=== PATIENT | male | born 1975 | race Caucasian/White ===

== ENCOUNTER 2016-08-13 07:24 | Outpatient (CLI) | payer OTHER | END 2016-08-13 07:25 | LOC: OUT 07:24 | PROVIDERS: ATTEND Colon & Rectal Surgery | DX: K42.9 Umbilical hernia without obstruction or gangrene (principal) | CPT/HCPCS: 99214 ==

== ENCOUNTER 2016-08-27 07:11 | Day surgery (SDC) | payer OTHER ==
--- NOTE | 2016-08-28 13:39 | Operative Note ---
SURGEON: Miguel Lai MD ANESTHESIA: General. ESTIMATED BLOOD LOSS: Minimal. COMPLICATIONS: None. APPARENT FINDINGS: A 2 cm umbilical hernia containing fat. PREOPERATIVE DIAGNOSIS: Umbilical hernia. POSTOPERATIVE DIAGNOSIS: Umbilical hernia. PROCEDURE PERFORMED: Repair of umbilical hernia with mesh. INDICATIONS FOR PROCEDURE: This is a 41-year-old man with an increasingly symptomatic umbilical hernia. DESCRIPTION OF PROCEDURE: The patient is brought to the operating room with general anesthesia achieved. The abdomen was prepped and draped. A curvilinear incision was made along the inferior border of the umbilicus and carried to the fascia. The hernia sac was opened. He had some herniated fat which was reduced. There was about a 2 to 2.5 cm defect. A medium Ventralex was used to repair the defect. It was placed beneath the fascia and secured with interrupted 0-Prolene sutures. The wound was irrigated and suctioned. There was no bleeding. The base of the umbilicus was tacked to the fascia with a 2-0 Vicryl suture. The skin was closed with running 4-0 Vicryl subcuticular sutures. Steri-Strips and a dressing were placed over the incision. The patient was awakened and extubated in the operating room and taken to the recovery room in good condition. cc: Dr. Shanta BURDEN
== END 2016-08-27 07:12 ==
LOC: OPSURG 07:11
PROVIDERS: ATTEND Colon & Rectal Surgery
DX: K42.0 Umbilical hernia with obstruction, without gangrene (principal)
CPT/HCPCS: 49587; J0131; J0330; J0690; J1100; J1885; J2001; J2250; J2405; J2704; J3010; J3490; J7030; J7120; C1781; S0028; S1016

== ENCOUNTER 2016-09-10 | Outpatient (CLI) | payer OTHER | END 2016-09-10 09:30 | CPT/HCPCS: 99213 ==

== ENCOUNTER 2017-04-09 06:01 | Emergency (ER) | payer OTHER ==
[2017-04-09] MEDS ORDERED: 0.9 % SODIUM CHLORIDE 1,000 ML IV ONE ×2 (06:10→06:11)
[2017-04-09 06:33] LABS: MEAN CORPUSCULAR HEMOGLOBIN 31.3 pg (28.0-34.0); MEAN CORPUSCULAR VOLUME 90.5 fl (80.0-100.0)
[2017-04-09 06:35] LABS: eGFR (African) > 60; eGFR (Non-African) > 60
--- NOTE | 2017-04-09 06:40 | ED Physician Documentation ---
Upper Respiratory Symptoms - HISTORIAN Historian: patient - HPI Stated Complaint: FEVER Chief Complaint: Cough/ Upper Respiratory Additional Information: cough congestion fever chills ache all over-eat/sleeps bowels/kidneys = ok Onset: days ago (3) Duration: intermittent episodes Context: other (hadd flu vaccine). denies: recent foreign travel, insect bite(s ) Worsened by Deep Breath: Yes - ROS CONST/EYES: weakness. denies: eye redness, eye itching CVS/RESP: none, chest pain, shortness of breath, palpitations LYMPH: leg swelling, rash, swollen glands GI/: denies: problems urinating NEURO/PSYCH: denies: fainting, dizziness, confusion, anxiety MS/SKIN: joint pain, muscle aches. denies: rash - PAST HX Lung Disease: asthma Surgeries/Procedures: appendectomy Immunizations: influenza, UTD Allergies/Adverse Reactions: Allergies Allergy/AdvReac Type Severity Reaction Status Date / Time No Known Drug Allergies Allergy Verified 04/09/17 06:28 - SOCIAL HX Smoking History: non-smoker Alcohol Use: none Drug Use: none - FAMILY HX Family History: no significant history - VITAL SIGNS Vital Signs: Vital Signs Temp Pulse Resp BP Pulse Ox 101.6 F H 115 H 18 125/81 98 04/09/17 06:01 04/09/17 06:01 04/09/17 06:01 04/09/17 06:01 04/09/17 06:01 - REVIEWED ASSESSMENTS Nursing Assessment Reviewed: Yes Vitals Reviewed: Yes ED Results Lab/Radiology - Lab Results Lab Results: Lab Results 04/09/17 04/09/17 06:10 06:10 WBC 13.40 K/ul H K/ul (4.00-12.00) RBC 4.71 M/ul M/ul (3.90-5.20) Hgb 14.7 g/dL g/dL (12.0-18.0) Hct 42.6 % % (37.0-53.0) MCV 90.5 fl fl (80.0-100.0) MCH 31.3 pg pg (28.0-34.0) MCHC 34.5 g/dL g/dL (30.0-36.0) RDW 12.9 % % (11.3-14.3) Plt Count 276 K/mm3 K/mm3 (130-400) Sodium 142 mmol/L mmol/L (136-145) Potassium 3.7 mmol/L mmol/L (3.5-5.1) Chloride 103 mmol/L mmol/L (98-107) Carbon Dioxide 25 mmol/L mmol/L (22-30) BUN 20 mg/dL mg/dL (9-20) Creatinine 1.10 mg/dL mg/dL (0.66-1.25) Estimated Creat Clear 131 Est GFR ( Amer) > 60 (60 - ) Est GFR (Non-Af Amer) > 60 (60 - ) Glucose 112 mg/dL H mg/dL (74-106) Calcium 9.3 mg/dL mg/dL (8.4-10.2) Total Bilirubin 0.4 mg/dL mg/dL (0.2-1.3) AST 22 U/L U/L (15-46) ALT 39 U/L U/L (13-69) Alkaline Phosphatase 63 U/L U/L (38-126) Total Protein 7.5 g/dL g/dL (6.3-8.2) Albumin 4.1 g/dL g/dL (3.5-5.0) type a flu titer pos - Orders Orders: ED Orders Category Date Time Status Place IV Lock 1T Care 04/09/17 06:08 Active CBC/PLATELET/DIFF Routine Lab 04/09/17 06:10 Received CMP [CMP] Routine Lab 04/09/17 06:10 Received INFLUENZA A&B Stat Lab 04/09/17 06:01 Ordered UA [URINALYSIS] Routine Lab 04/09/17 Ordered 0.9 % Sodium Chloride [Normal Saline] 1,000 ml Med 04/09/17 06:11 Discontinued IV .STK-MED 0.9 % Sodium Chloride [Normal Saline] 1,000 ml Med 04/09/17 06:10 Active IV Q1H EKG WITH COMPARISON Stat Ther 04/09/17 Ordered Upper Respiratory Symptoms - EXAM General Appearance: moderate distress EENT: eyes nml inspection, TM erythema. No: pharynx nml Neck: normal inspection. No: carotid bruit Respiratory: no resp. distress, breath sounds nml, wheezes (mild). No: accessory muscle use, decreased air movement Abdomen: non-tender CVS: heart sounds normal, tachycardia (111 on ecg). No: frequent extrasystoles Skin: color nml, no rash, warm,dry. No: cyanosis, diaphoresis, pallor Extremities: non-tender, normal range of motion, no evidence of injury Neuro/Psych: oriented x3, mood/affect nml Discharge Clincal Impression: flu type A Referrals: Shanta Dennison MD [Primary Care Provider] - 2 Days Comments: home rest hi fluids bal nutrition Condition: Good Disposition: 01 HOME, SELF-CARE Decision to Admit: NO Decision Time: 06:59
[2017-04-09 07:09] LABS: EOSINOPHILS % 2 % (0-7); MONOCYTES % 5 % (0-11); SEGMENTED NEUTROPHILS % 86 % (39-79)
[2017-04-09 07:14] VITALS: BP 120/74
== END 2017-04-09 07:12 | disposition home or self-care (01) ==
LOC: ED 06:01
DX: J09.X2 Influenza due to identified novel influenza A virus with other respiratory manifestations (principal)
CPT/HCPCS: 80053; 85025; 87400; 96365; 99282; J7030; S1016